=== PATIENT | female | born 1995 | race Caucasian/White ===

== ENCOUNTER 2024-10-31 11:46 | Day surgery (SDC) | payer OTHER, SELFPAY ==
[2024-10-25 16:35] LABS: Hematocrit 38.3 % (37-47); Hemoglobin 12.7 g/dL (12.0-15.0); Mean Corp Hgb Conc 33.2 g/dL (32-36); Mean Corpuscular Hgb 29.9 pg (27.0-32.0); Mean Corpuscular Volume 90.1 fL (81-99); Mean Platelet Vol. 10.1 fl (6.2-12.0); Platelet Count 349 K/mm3 (150-450); RBC Distribution Width CV 12.9 % (11.6-14.6); RBC Distribution Width SD 42.5 fl (35.1-43.9); Red Blood Count 4.25 M/mm3 (4.2-5.4); White Blood Count 8.7 K/mm3 (4.4-11.0)
[2024-10-25 17:05] LABS: AST(SGOT) 14 U/L (15-37); Alanine Aminotransfer ALT/SGPT 21 U/L (13-56); Albumin, Serum 3.9 g/dL (3.2-5.0); Alkaline Phosphatase 43 U/L (45-117); Anion Gap 4 (5-15); BUN 18 mg/dL (7-18); BUN/Creat Ratio 24.5 RATIO (10-20); Calcium,Total 9.5 mg/dL (8.5-10.1); Chloride 107 mmol/L (98-107); Creatinine, Serum 0.74 mg/dL (0.55-1.02); EST Glomerular Filtration Rate 98 mL/min (>60); Est Glom Filt Rate - Afr Amer 119 mL/min (>60); Globulin 3.8 g/dL (2.2-4.2); Glucose 88 mg/dL (74-106); Potassium 3.8 mmol/L (3.5-5.1); Protein, Total 7.7 g/dL (6.4-8.2); Sodium Level 139 mmol/L (136-145)
--- NOTE | 2024-10-28 18:08 | PAT.ANESEVAL ---
Pre-Assessment Diagnosis/Proposed Procedure Planned Operative Procedure(s): Laparoscopic, bilateral salpingectomy, possible Liletta IUD insertion Anesthesia History Anesthesia History - an/syq 13 nav/c2 operator: Anesthesia History - an/syq 13 nav/c2 operator Hx Hospitalization No 10/25/24 11:04 Any Problems With Anesthesia Yes: BURNING PAIN IN BACK 10/25/24 11:04 AND SHOULDERS GOING UNDER WITH LAST SURGERY Cholinesterase deficiency No 10/25/24 11:04 You/Your Family Experience No 10/25/24 11:04 fever (hyperthermia) with Relationship Recent Exposure to Contagious Disease Does patient have nerve No 10/25/24 11:04 stimulator Patient instructed to have device shut off --Does patient have Pacemaker or ICD? When Was Last Pacemaker Check QUESTION #4 FULL TEXT: You/Your Family Experience fever (hyperthermia) with Anesthesia Last Oral Intake Last Oral intake: Last Oral Intake NPO since Meds taken in AM with sips of water? Meds patient instructed to take am of surgery PONV PONV - an/syq 13 nav/c2 operator: PONV - an/syq 13 nav/c2 operator Female Yes 10/25/24 11:04 HX of Motion Sickness No 10/25/24 11:04 HX of N/V After Surgery No 10/25/24 11:04 Non-Smoker Yes 10/25/24 11:04 Duration of Surgery greater No 10/25/24 11:04 than 60 minutes Number of Risk Factors 2 10/25/24 11:04 PONV Score Moderate Risk 10/25/24 11:04 Respiratory Assessment Respiratory Assessment - an/syq 13 nav/c2 operator: Respiratory Tract Infection Hx - an/syq 13 nav/c2 operator Hx Respiratory Tract Infection No 10/25/24 11:04 STOP Sleep Apnea STOP Sleep Apnea - an/syq 13 nav/c2 operator: STOP Sleep Apnea - an/syq 13 nav/c2 operator Hx Hypertension No 10/25/24 11:04 Hx Sleep Apnea No 10/25/24 11:04 CPAP BIPAP Do you snore loudly (louder No 10/25/24 11:04 than talking or can be heard Do you often feel tired/ No 10/25/24 11:04 fatigued/ sleepy during daytime? Has anyone observed you stop No 10/25/24 11:04 breathing during sleep? STOP Results Negative 10/25/24 11:04 QUESTION #5 FULL TEXT : Do you snore loudly (louder than talking or can be heard through closed doors)? 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 Specify any problems Hx of Preganancy in last 3 No 10/25/24 11:04 Months Nurse Filling Out Transfusion [facility] 10/25/24 11:04 & Questions: Date: 10/25/24 10/25/24 11:04 Time: 11:15 10/25/24 11:04 Patient unable to answer at this time (ie. confused, unrespo /Reproduction History /Reproductive History - an/syq 13 nav/c2 operator: /Reproductive Hx- an/syq 13 nav/c2 operator Hx Now No 10/25/24 11:04 Gestational Age (in weeks): EDC: Hx Hx Para Hx Section SAB No 10/25/24 11:04 [facility], [facility] Medical History (Updated 10/25/24 @ 11:15 by Lia Nunez) Wears contact lenses Wears glasses MRSA infection History of steroid therapy Bladder disease Anemia Loss of consciousness Non-smoker History of irregular heartbeat Home Medications ?Medication ?Instructions ?Recorded ?Last Taken ?Type albuterol sulfate 90 mcg/actuation 2 puff inhalation Q4H PRN PRN 10/25/24 Unknown History aerosol inhaler shortness of breath or wheezing cholecalciferol (vitamin D3) 50 2,000 unit PO DAILY 10/25/24 Unknown History mcg (2,000 unit) capsule (Vitamin D3) drospirenone 3 mg-ethinyl 1 tab PO DAILY 10/25/24 Unknown History estradiol 0.02 mg tablet (Vestura (28)) melatonin 10 mg capsule 10 mg PO QHS PRN sleep 10/25/24 Unknown History zinc 50 tab PO DAILY 10/25/24 Unknown History Allergy/AdvReac Type Severity Reaction Status Date / Time amoxicillin Allergy Intermediate Hives Verified 10/25/24 10:59 cephalexin (From Keflex) Allergy Intermediate Diarrhea Verified 10/25/24 10:59 fluconazole (From Diflucan) Allergy Intermediate Swelling Verified 10/25/24 10:59 ciprofloxacin (From Cipro) Allergy Itching Verified 10/25/24 10:59 sulfamethoxazole (From Allergy Hives Verified 10/25/24 10:59 Bactrim) trimethoprim (From Bactrim) Allergy Hives Verified 10/25/24 10:59 Surgical History (Updated 10/25/24 @ 11:05 by Lia Nunez) History of biopsy of bladder History of surgery Social History Smoking Status: Never smoker Audit: Pertinent Findings Pertinent Findings Echo (EF%) pertinent findings: echo 01/13/2023: LV normal, LVEF 58%, RV size and funx normal, no valvular disease Recommendation Anesthesia Recommendation Anesthesia recommendation: OPTIMIZED for anesthesia
[2024-10-31] VITALS (12 sets, daily range): BP systolic 110–121; BP diastolic 68–83; PULSE 72–100; RESP 12–17; TEMP 36.5–37.7; O2SAT 92–100; BMI 23.1
[2024-10-31] MEDS: 0.9% Normal Saline (1000mL) 1,000 ML 15 ML IV (12:20)
[2024-10-31 12:27] LABS: Internal QC Validated? YES +Cl - CLEAR BKGD; Pregnancy, Urine Negative Negative
--- NOTE | 2024-10-31 12:43 | PCM.PRE.AN2 ---
ASA Classification* ASA Classification ASA Classification: 2 Assessment & Plan Anesthesia* Anesthesia Assessment Anesthesia Assessment: Discussed sedation and/or anesthesia options, risks, benefits, and alternatives with patient/parents/legal guardian/POA. Questions invited. The patient/parents/legal guardian/POA seems to understand and agrees to proceed with anesthesia plan. Reviewed the physical assessment, medical history, allergy history and patient home medications list prior to surgery/procedure/anesthetic and documented any changes. Performed airway and anesthesia risk assessments. Anesthesia Type Anesthesia Type: General History Source History Obtained from:: Patient and Chart Anesthesia Focused Assessment* Temperature: 98.9 F Pulse Rate: 83 Blood Pressure: 118/78 Respiratory Rate: 17 Pulse Ox: 100 Oxygen Delivery Method: Room Air Airway Assessment Mouth opens: >3 cm Mallampati Score: I Teeth Condition: Intact Neck Range of motion (ROM): Full ROM Focused Labs Anesthesia Preop lab: CBC WBC 8.7 K/mm3 (4.4-11.0) 10/25/24 16:12 10/25/24 RBC 4.25 M/mm3 (4.2-5.4) 10/25/24 16:12 10/25/24 Hgb 12.7 g/dL (12.0-15.0) 10/25/24 16:12 10/25/24 Hct 38.3 % (37-47) 10/25/24 16:12 10/25/24 Plt Count 349 K/mm3 (150-450) 10/25/24 16:12 10/25/24 CHEMISTRY Potassium 3.8 mmol/L (3.5-5.1) 10/25/24 16:12 10/25/24 Sodium 139 mmol/L (136-145) 10/25/24 16:12 10/25/24 BUN 18 mg/dL (7-18) 10/25/24 16:12 10/25/24 Creatinine 0.74 mg/dL (0.55-1.02) 10/25/24 16:12 10/25/24 Glucose 88 mg/dL (74-106) 10/25/24 16:12 10/25/24 COAG Urine Test Negative Negative 10/31/24 12:10 10/31/24 Pre-Assessment Diagnosis/Proposed Procedure Planned Operative Procedure(s): Laparoscopic, bilateral salpingectomy, possible Liletta IUD insertion Anesthesia History Anesthesia History - secretarial stenographer: Anesthesia History - secretarial stenographer Hx Hospitalization No 10/25/24 11:04 Any Problems With Anesthesia Yes: BURNING PAIN IN BACK 10/25/24 11:04 AND SHOULDERS GOING UNDER WITH LAST SURGERY Cholinesterase deficiency No 10/25/24 11:04 You/Your Family Experience No 10/25/24 11:04 fever (hyperthermia) with Relationship Recent Exposure to Contagious No 10/31/24 12:21 Disease Does patient have nerve No 10/25/24 11:04 stimulator Patient instructed to have device shut off --Does patient have Pacemaker No 10/31/24 12:21 or ICD? When Was Last Pacemaker Check QUESTION #4 FULL TEXT: You/Your Family Experience fever (hyperthermia) with Anesthesia Last Oral Intake Last Oral intake: Last Oral Intake NPO since 08:00 10/31/24 12:21 Meds taken in AM with sips of water? Meds patient instructed to take am of surgery Any additional information?: Yes NPO since: 08:00 (Patient had black coffee and tea at 8 AM.) PONV PONV - secretarial stenographer: PONV - secretarial stenographer Female Yes 10/25/24 11:04 HX of Motion Sickness No 10/25/24 11:04 HX of N/V After Surgery No 10/25/24 11:04 Non-Smoker Yes 10/25/24 11:04 Duration of Surgery greater No 10/25/24 11:04 than 60 minutes Number of Risk Factors 2 10/25/24 11:04 PONV Score Moderate Risk 10/25/24 11:04 Height & Weight Height & Weight: Anesthesia: Height & Weight Height 5 ft 2 in 10/31/24 12:21 Weight: 57.2 kg 10/31/24 12:21 Body Mass Index (BMI) 23.1 10/31/24 12:21 Respiratory Assessment Respiratory Assessment - secretarial stenographer: Respiratory Tract Infection Hx - secretarial stenographer Hx Respiratory Tract Infection No 10/25/24 11:04 STOP Sleep Apnea STOP Sleep Apnea - secretarial stenographer: STOP Sleep Apnea - secretarial stenographer Hx Hypertension No 10/25/24 11:04 Hx Sleep Apnea No 10/25/24 11:04 CPAP BIPAP Do you snore loudly (louder No 10/25/24 11:04 than talking or can be heard Do you often feel tired/ No 10/25/24 11:04 fatigued/ sleepy during daytime? Has anyone observed you stop No 10/25/24 11:04 breathing during sleep? STOP Results Negative 10/25/24 11:04 QUESTION #5 FULL TEXT : Do you snore loudly (louder than talking or can be heard through closed doors)? 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 Specify any problems Hx of Preganancy in last 3 No 10/25/24 11:04 Months Nurse Filling Out Transfusion [facility] 10/25/24 11:04 & Questions: Date: 10/25/24 10/25/24 11:04 Time: 11:15 10/25/24 11:04 Patient unable to answer at this time (ie. confused, unrespo /Reproduction History /Reproductive History - secretarial stenographer: /Reproductive Hx- secretarial stenographer Hx Now No 10/25/24 11:04 Gestational Age (in weeks): EDC: Hx Hx Para Hx Section SAB No 10/25/24 11:04 Active Medications Active Medications: Current Medications Generic Name Dose Route Start Last Admin Trade Name Freq PRN Reason Stop Dose Admin Sodium Chloride 1,000 mls @ 15 mls/hr 10/31/24 12:10 10/31/24 12:20 IV 11/06/24 01:29 15 mls/hr .Q48H MAYANK Administration Protocol PFS Medical History Wears contact lenses Wears glasses MRSA infection History of steroid therapy Bladder disease Anemia Loss of consciousness Non-smoker History of irregular heartbeat Home Medications ?Medication ?Instructions ?Recorded ?Last Taken ?Type albuterol sulfate 90 mcg/actuation 2 puff inhalation Q4H PRN PRN 10/25/24 Unknown History aerosol inhaler shortness of breath or wheezing cholecalciferol (vitamin D3) 50 2,000 unit PO DAILY 10/25/24 Unknown History mcg (2,000 unit) capsule (Vitamin D3) drospirenone 3 mg-ethinyl 1 tab PO DAILY 10/25/24 Unknown History estradiol 0.02 mg tablet (Vestura (28)) melatonin 10 mg capsule 10 mg PO QHS PRN sleep 10/25/24 Unknown History zinc 50 tab PO DAILY 10/25/24 Unknown History Allergy/AdvReac Type Severity Reaction Status Date / Time amoxicillin Allergy Intermediate Hives Verified 10/31/24 12:19 cephalexin (From Keflex) Allergy Intermediate Diarrhea Verified 10/31/24 12:19 fluconazole (From Diflucan) Allergy Intermediate Swelling Verified 10/31/24 12:19 ciprofloxacin (From Cipro) Allergy Itching Verified 10/31/24 12:19 sulfamethoxazole (From Allergy Hives Verified 10/31/24 12:19 Bactrim) trimethoprim (From Bactrim) Allergy Hives Verified 10/31/24 12:19 Surgical History (Updated 10/31/24 @ 12:[address] Meng Marin MD) History of biopsy of bladder History of surgery Social History Smoking Status: Never smoker Review of Systems (Anesthesia) ROS Narrative System reviewed and no additional complaints, except as documented.
--- NOTE | 2024-10-31 13:30 | FALS_PTH ---
PATIENT: DONTAE SEBASTIAN LOC: [facility] [place] U#:[id number] AGE/SX: 29/F ROOM: RE10/31/[address]: Dr. Joyce Carlin DO : 1995 BED: DIS: 10/31/2024 SPEC #: [id number] RECD: 11/01/24 08:50 STATUS: ASUTIN ROGE #: [id number] SHARONDA: 10/31/24 13:[address]: Joyce Carlin DEPT: SURGICAL PATHOLOGY RECD BY: Aline Tucker ENTERED: 11/01/24 10:14 SP TYPE: FALL TUBES OTHR DR: Dr. Telly Dasilva DO Tissues: Fallopian tube Procedures: Surgery Specimen Level II HEADER OPERATION: Laparoscopic bilateral salpingectomy PRE-OP DIAGNOSIS: Desires sterilization, endometriosis TISSUE SUBMITTED: Bilateral fallopian tubes MICROSCOPIC DIAGNOSIS Bilateral fallopian tubes, excision: * No specific pathologic change (complete luminal cross-section confirmed). MICROSCOPIC DESCRIPTION Slides are reviewed. GROSS DESCRIPTION Received in fixative is one container labeled with the patient's name and designated bilateral fallopian tubes. The specimen consists of bilateral fallopian tubes including fimbriated ends measuring 5 cm in length and 0.7 cm in diameter and 6.5cm in length and 0.8cm in diameter. Both fallopian tubes show a paratubal cyst measuring 0.6 and 1cm in greatest dimensions. The fallopian tubes are not identified as right or left. Sections reveal unremarkable cut surfaces. Glue Jointer Feeder sections are submitted in two cassettes: 1- one cassette and adjacent paratubal cyst, 2- second fallopian tube and adjacent paratubal cyst. / IQRA: 11/01/2024 TC: CPT: 77942 x2
--- NOTE | 2024-10-31 13:32 | PCM.DC ---
Discharge Instructions Diet Discharge Diet: No restrictions DC O2, CPAP, BIPAP needs Home O2 Discharge instructions: No Dressing / Incision Discharge Activity: May Drive (once you are more than 24 hours out from surgery, and you no longer need pain medication) and May Shower (once you are more than 24 hours out from surgery) May resume sexual activity in: 1 week (nothing in the vagina and no soaking in water) Ice area for (Minutes): 15 Weight Bearing Status: Weight bearing as tolerated Lifting Restrictions: nothing heavier than 20-25 pounds for 1 week Dressing / Incision Call your doctor if your incision/area has: Continuous Slow Oozing, Sudden Increased Bleeding, Increased Pain/ Swelling, Increased Redness, Foul Smelling Discharge and Swelling at the incision site Call your doctor if you observe: Fever of 101 or Higher, Coldness, Increased Pain, Numbness or Tingling, Inability to urinate, Inability to have a bowel movement, Using more than 1 pad per hour, Shortness of breath, Dizziness, Swelling in the ankles, Chest pain, Increased palpitations (irregular heartbeat), Calf discomfort and Uncontrolled pain Suture Line Care: Avoid Pulling/Pushing and Avoid Pinching/Bending Change Dressing in: leave in place till F/U (The glue will start to peel up over time, and you can trim the edges with scissors or you can let it be. The sutures are under the skin and will dissolve over time) Cleanse incision/area with: Soap & Water Follow Up Care Please Follow Up With: Joyce Carlin DO When: 1 week post op exam Test Results: Test results from this visit will be discussed in further detail at your follow-up appointment, if applicable. Discharge Plan Admission Primary Reason for Your Visit: surgery Attending Provider: Joyce Carlin Primary Care Provider: Telly Dasilva V Instructions Patient Instructions: Hysterectomy Lap Dc Additional Instructions / Restrictions: Finish the current pill pack of your control pill and then stop the control pill Print Language: [place] Discharge Orders/Prescriptions Prescriptions: Continued cholecalciferol (vitamin D3) [Vitamin D3] 50 mcg (2,000 unit) capsule 2,000 unit PO DAILY albuterol sulfate 90 mcg/actuation HFA aerosol inhaler 2 puff INHALATION Q4H PRN PRN (Reason: shortness of breath or wheezing) zinc Tablet,Chewable 50 tab PO DAILY melatonin 10 mg capsule 10 mg PO QHS PRN (Reason: sleep) Discontinued drospirenone-ethinyl estradiol [Vestura (28)] 3-0.02 mg tablet 1 tab PO DAILY Referrals / Follow Up: Telly Dasilva DO [Primary Care Provider] - Disposition Disposition (needs filled in before D/C Order can be placed): Home, Self Care
[2024-10-31] MEDS: Bupivacaine 0.5% PF 10 ML VIAL (14:01)
--- NOTE | 2024-10-31 14:24 | PCM.OPRPT ---
Problems Associated Problem List Diagnoses (1) Request for sterilization: Operative Report (Standard) Operative Information Date of Procedure: 10/31/24 Pre-Operative Diagnosis: Request for sterilization Post-Operative Diagnosis: As above, endometriosis Surgery/Procedure Performed: Laparoscopic bilateral salpingectomy regional education manager: Yes Treasury Consultant: Elena PINZON Tasks completed by event marketing assistant: Closing, Insert Trochanter and Retracting Type of Anesthesia: General RN Documented Start/Stop Times: Operation Date: 10/31/24 13:30 Case Time Into Pre-Op 10/31/24 12:03 Out of Pre-Op 10/31/24 13:28 Anesthesia Start 10/31/24 13:32 Into Room 10/31/24 13:32 Procedure Start 10/31/24 13:54 Procedure End 10/31/24 14:21 Procedure Start Time: 13:54 Procedure Stop Time: 14:21 Select all DRAINS/GRAFTS/IMPLANTS that apply: None Special Medications: None Estimated Blood Loss: < 25 mL Fluids Replaced: See anesthesia record Specimen collected: Yes Description of specimen(s) removed: Bilateral fallopian tubes Description of surgery: The patient was taken to the operating room where general anesthesia was induced. She was prepped and draped in the dorsal lithotomy position using yellowfin stirrups. A weighted speculum was placed in the vagina to expose the cervix. The anterior lip of the cervix was grasped. The uterus sounded to 8 cm. A uterine manipulator was placed in usual fashion. The single-tooth tenaculum and the weighted speculum were removed. Gloves were changed and attention was turned to the abdominal portion of the procedure. Local was infiltrated at all port sites. An infraumbilical incision was made to accommodate a 5 mm port. The 5 mm port was placed under direct visualization using the laparoscope. Once confirmed intraperitoneal, CO2 insufflation was initiated. No injury was noted upon entry. The patient was placed in Trendelenburg position. A left lateral 5 mm port was placed. A right lateral 5 mm port was placed. The uterus was upheld from below. Several small endometriosis lesions were noted in the posterior cul-de-sac. The uterus was normal-appearing. Bilateral ovaries were normal-appearing. Bilateral paratubal cysts were noted, and the bilateral fallopian tubes were otherwise normal-appearing. The left fallopian tube was followed out to the fimbriated end and elevated out of the pelvis. The LigaSure device was used to serially clamp, cauterize, and transect along the mesosalpinx hugging adjacent to the fallopian tube. Once at the level of the cornua the fallopian tube was transected and removed from the abdomen. The right fallopian tube was followed out to the fimbriated end and elevated out of the pelvis. The LigaSure device was used to serially clamp, cauterize, and transect the mesosalpinx hugging adjacent to the fallopian tube. Once at the level of the cornua of the fallopian tube was transected and removed from the abdomen. Bilateral fallopian tubes were sent to pathology for review. Hemostasis was confirmed. The abdomen was exsufflated and the ports were removed. The skin was closed with 3-0 Monocryl in a subcuticular fashion, and the incision sites were closed with glue. From below, the uterine manipulator was removed and a vaginal sweep was performed. Instrument, sharp, sponge counts were correct and the patient was taken to the recovery in stable condition. Surgical Findings: Several endometriosis lesions noted in posterior cul de sac. Bilateral peritubal simple appearing cysts < 1 cm in size, and otherwise normal appearing bilateral fallopian tubes. Normal appearing uterus and bilateral ovaries Complications Complications: No Admit VTE Documentation VTE Present on Admission: No VTE Mechan Device Prophylaxis: SCD's
--- NOTE | 2024-10-31 14:36 | PCM.POST.ANE ---
Anesthesia: Postop Eval I Current Vital Signs Temperature: 98 F Pulse Rate: 99 Blood Pressure: 113/83 Respiratory Rate: 12 Pulse Ox: 96 Oxygen Delivery Method: Room Air Assessment Airway patent: Yes Spontaneous unlabored respirations: Yes Mental status: Awake nausea: No Vomiting: No Anesthesia Complication: No Fluid Hydration Crystalloid volume administer (ml): 900 Total IV fluid infused: 900 Progress Note Anesthesia document: Postop Eval 1 completed: Yes
[2024-10-31] MEDS: Acetaminophen 500 MG Tablet 1000 MG PO (17:31)
--- NOTE | 2024-10-31 21:45 | POSTOPAN2_ITS ---
Anesthesia Postop Eval I Sum Postop Eval Completion status Anesthesia document: Postop Eval 1 completed: Yes Anesthesia Postop Eval I Summary Anesthesia Postop Eval I Summary: Anesthesia Postop Eval I: Assessment Summary Airway patent Yes 10/31/24 14:37 REWORK MACHINE OPERATOR.[email or web address] Spontaneous unlabored Yes 10/31/24 14:37 REWORK MACHINE OPERATOR.JSWI respirations Mental status Awake 10/31/24 14:37 REWORK MACHINE OPERATOR.JSWI nausea No 10/31/24 14:37 REWORK MACHINE OPERATOR.JSWI Vomiting No 10/31/24 14:37 REWORK MACHINE OPERATOR.JSWI Anesthesia Postop Eval I: Fluid Summary Crystalloid volume administer 900 10/31/24 14:37 REWORK MACHINE OPERATOR.JSWI (ml) Colloids volume administered ( ml) Blood Product volume administered (ml) Total IV fluid infused 900 10/31/24 14:37 REWORK MACHINE OPERATOR.JSWI Anesthesia Postop Eval I: Summary Notes Anesthesia Complication No 10/31/24 14:37 REWORK MACHINE OPERATOR.JSWI Anesthesia Complication Comment: Post-operative progress note Anesthesia: Postop Eval II Evaluation Mental status: Awake and Calm Pain Level: 1 nausea: No Vomiting: No Complications Anesthesia Complication: No
--- NOTE | 2024-10-31 21:45 | PCM.POSTANE2 ---
Anesthesia Postop Eval I Sum Postop Eval Completion status Anesthesia document: Postop Eval 1 completed: Yes Anesthesia Postop Eval I Summary Anesthesia Postop Eval I Summary: Anesthesia Postop Eval I: Assessment Summary Airway patent Yes 10/31/24 14:37 SECURITIES COMPLIANCE EXAMINER.JSWI Spontaneous unlabored Yes 10/31/24 14:37 SECURITIES COMPLIANCE EXAMINER.JSWI respirations Mental status Awake 10/31/24 14:37 SECURITIES COMPLIANCE EXAMINER.JSWI nausea No 10/31/24 14:37 SECURITIES COMPLIANCE EXAMINER.JSWI Vomiting No 10/31/24 14:37 SECURITIES COMPLIANCE EXAMINER.JSWI Anesthesia Postop Eval I: Fluid Summary Crystalloid volume administer 900 10/31/24 14:37 SECURITIES COMPLIANCE EXAMINER.JSWI (ml) Colloids volume administered ( ml) Blood Product volume administered (ml) Total IV fluid infused 900 10/31/24 14:37 SECURITIES COMPLIANCE EXAMINER.JSWI Anesthesia Postop Eval I: Summary Notes Anesthesia Complication No 10/31/24 14:37 SECURITIES COMPLIANCE EXAMINER.JSWI Anesthesia Complication Comment: Post-operative progress note Anesthesia: Postop Eval II Evaluation Mental status: Awake and Calm Pain Level: 1 nausea: No Vomiting: No Complications Anesthesia Complication: No
== END 2024-10-31 18:22 | disposition home or self-care (01) ==
LOC: SDC 11:48 → AC 11:49
PROVIDERS: Anesthesiology; PCP Internal Medicine; Referring Provider Obstetrics & Gynecology; Visit Provider Obstetrics & Gynecology
PROC: (CPT 58661; principal; 2024-10-31 13:10)
DX: Z30.2 Encounter for sterilization (principal); N80.329 Endometriosis of the posterior cul-de-sac, unspecified depth; N83.8 Other noninflammatory disorders of ovary, fallopian tube and broad ligament; N92.4 Excessive bleeding in the premenopausal period
CPT/HCPCS: 58661; 00840; 36415; 80053; 81025; 85027; 86850; 86900; 86901; 88302; J2405